=== PATIENT | female | born 2000 | race Caucasian/White ===

== ENCOUNTER 2022-10-24 15:17 | Emergency (ER) | payer OTHER ==
[2022-10-24] MEDS ORDERED: Dexamethasone 10 MG/ML VIAL ONE (17:01)
[2022-10-24] MEDS ORDERED: Ketorolac Tromethamine 30 MG/ML VIAL ONE (17:02)
[2022-10-24] MEDS ORDERED: diphenhydrAMINE 50 MG/ML VIAL ONE (17:02)
== END 2022-10-24 18:48 | disposition home or self-care (01) ==
LOC: CSHERS 15:17
DX: R51.9 Headache, unspecified (principal)
CPT/HCPCS: 96374; 96375; J1100; J1200; J1885